=== PATIENT | female | born 1975 ===

== ENCOUNTER 2021-10-30 17:47 | Emergency (ER) | payer BC ==
[~2021-10-30] VITALS: Ht 157.5 cm; Wt 104.6 kg
[2021-10-30 17:54] VITALS: BP 177/106
== END 2021-10-30 19:05 | disposition left against medical advice (07) ==
LOC: ER 17:47
DX: R07.89 Other chest pain (principal); Z53.21 Procedure and treatment not carried out due to patient leaving prior to being seen by health care provider
CPT/HCPCS: 93005